=== PATIENT | male | born 1995 | race Caucasian/White ===

== ENCOUNTER 2019-11-19 07:09 | Emergency (ER) | payer OTHER ==
--- NOTE | 2019-11-19 07:17 | ED Physician Documentation ---
PD HPI LOWER EXT INJURY - Stated complaint Stated Complaint: LT FOOT PX - History obtained from History obtained from: Patient - History of Present Illness PD HPI LOW EXT INJURY LOCATION: Left, Foot Type of injury: Blunt / blow (he dropped 25 lb dumbbell on top of foot last evening while working out.) Where injury occurred: Home Timing - details: Abrupt onset, Still present Worsened by: Moving, Palpating Associated symptoms: Swelling, Discolored. No: Weakness, Numbness Contributing factors: No: Anticoagulated Similar symptoms before: Has not had sx before Review of Systems Skin: reports: Abrasion (s). denies: Laceration (s) Musculoskeletal: reports: Extremity swelling Neurologic: denies: Focal weakness, Numbness PD PAST MEDICAL HISTORY - Past Medical History Cardiovascular: None Musculoskeletal: None - Present Medications Home Medications: Ambulatory Orders Medication Instructions Recorded Confirmed No Known Home Medications 11/19/19 11/19/19 - Allergies Allergies/Adverse Reactions: Allergies Allergy/AdvReac Type Severity Reaction Status Date / Time No Known Drug Allergies Allergy Verified 11/19/19 07:23 PD ED PE NORMAL - Vitals Vital signs reviewed: Yes - General General: Alert and oriented X 3, No acute distress, Well developed/nourished - Extremities Extremities: Other (left foot with swelling and tenderness dorsal mid foot. Abrasion on top of foot. Ankle not tender. No plantar tenderness. ) - Neuro Neuro: No motor deficit, No sensory deficit Results - Vitals Vitals: Oxygen O2 Source Room air - Rads (name of study) foot left Radiology: Prelim report reviewed (no fracture), See rad report PD MEDICAL DECISION MAKING - ED course Complexity details: reviewed results (no fracture; it will be tender/ difficult for him to get into usual boots for duty, so given note for regular shoes for 3 days. ), considered differential, d/w patient Departure - Departure Disposition: 01 Home, Self Care Clinical Impression: Foot contusion Qualifiers: Encounter type: initial encounter Laterality: left Qualified Code(s): S90.32XA - Contusion of left foot, initial encounter Condition: Stable Record reviewed to determine appropriate education?: Yes Instructions: ED Contusion Foot Follow-Up: KELLY SAENZ MD [Primary Care Provider] - Comments: No fracture seen on x-ray. I presume will be sore for several days and then improve gradually during that time. Ice elevate and rest the foot for swelling. Band-Aid for the abrasion. I wrote a note for you to not have to wear your boots for 3 days so will be more comfortable. Minimal walking standing etc. during that time as well. Recheck if not improved over several days. Tylenol ibuprofen or naproxen as needed for pains. Forms: Activity restrictions Discharge Date/Time: 11/19/19 09:08
--- NOTE | 2019-11-19 08:16 | XRAY Report ---
Reason: dumbbell dropped onto top of foot Procedure Date: 11/19/2019 Accession Number: [id number] / [id number] Procedure: XR - Foot 3 View LT CPT Code: Final Report FULL RESULT: EXAM: LEFT FOOT RADIOGRAPHY EXAM DATE: 11/19/2019 07:40 AM. CLINICAL HISTORY: Dumbbell dropped onto top of foot. COMPARISON: None. TECHNIQUE: 3 views. FINDINGS: Bones: Normal. No fractures or bone lesions. Joints: Normal. No subluxations. Soft Tissues: Moderate soft tissue swelling noted. No radiopaque foreign bodies are noted. IMPRESSION: 1. No fracture or malalignment. 2. Moderate soft tissue swelling noted. 3. If patient remains symptomatic, recommend follow up in 10-14 days. RADIA
[2019-11-19 08:47] VITALS: BP 140/80
== END 2019-11-19 09:08 | disposition home or self-care (01) ==
LOC: ED 07:09
DX: S90.32XA Contusion of left foot, initial encounter (principal); S90.812A Abrasion, left foot, initial encounter; W20.8XXA Other cause of strike by thrown, projected or falling object, initial encounter; Y93.B3 Activity, free weights; Y92.009 Unspecified place in unspecified non-institutional (private) residence as the place of occurrence of the external cause
CPT/HCPCS: 99283

== ENCOUNTER 2022-11-26 18:33 | Emergency (ER) | payer OTHER ==
[2022-11-26] MEDS ORDERED: IBUPROFEN 600 MG TABLET PO STA (18:52)
--- NOTE | 2022-11-26 19:11 | ED Physician Documentation ---
History of Present Illness - Stated complaint Stated Complaint: R ARM INJ - Chief complaint Chief Complaint: Ext Problem - Additonal information Additional information: 27-year-old male presents emergency department for evaluation of acute right bicep and tricep pain. He was playing softball when he threw a ball forcefully from third base to first. He felt a sharp pain in both his bicep and triceps region and since then has had some pain extending down the forearm as well as some subjective numbness of the right small finger. He is right arm dominant. No history of previous injury. Review of Systems Constitutional: reports: Reviewed and negative Musculoskeletal: reports: Extremity pain PD PAST MEDICAL HISTORY - Past Medical History Past Medical History: No Cardiovascular: None Respiratory: None Neuro: None Endocrine/Autoimmune: None GI: None : None HEENT: None Psych: None Musculoskeletal: None Derm: None - Past Surgical History Past Surgical History: No - Present Medications Home Medications: Ambulatory Orders Medication Instructions Recorded Confirmed No Known Home Medications 11/19/19 11/26/22 - Allergies Allergies/Adverse Reactions: Allergies Allergy/AdvReac Type Severity Reaction Status Date / Time No Known Drug Allergies Allergy Verified 11/26/22 18:42 - Social History Does the pt smoke?: No Smoking Status: Never smoker Does the pt drink ETOH?: Yes Does the pt have substance abuse?: No - Immunizations Immunizations: TDAP >10years/unknown - POLST Patient has POLST: No PD ED PE EXPANDED - General General: Alert, No acute distress - Extremities Extremities: Right arm (Pain with palpation to the distal bicep without obvious swelling. Normal flexion extension at the elbow as well as pronation and supination. full equal bicep. Normal triceps. Normal strength of the hand and wrist.) Results - Vitals Vitals: Vital Signs - 24 hr 11/26/22 18:34 Temperature 36.6 C Heart Rate 77 Respiratory 18 Rate Blood Pressure 119/82 H O2 Saturation 97 Oxygen O2 Source Room air - Rads (name of study) right shoulder Relevant Findings:: EMP independent interpretation of test (No acute fracture or dislocation) PD Medical Decision Making - ED course Complexity details: reviewed results, d/w patient ED course: 27-year-old male presents emergency department for evaluation of acute right bicep and tricep pain sustained when he threw forcefully from third base to first base while playing softball. On exam there is no weakness of either the bicep or tricep muscle in comparison to the left side though he does have pain with extension of the arm. Clinically I suspect he may have a mild tear though he clinically does not have a full tendon rupture. X-ray per my interpretation showed no acute findings. He is placed in a sling advised NSAID medication. We will follow-up with [facility]. The usual emergent return precautions for worsening symptoms were discussed Departure - Departure Disposition: 01 Home, Self Care Clinical Impression: Biceps muscle tear Qualifiers: Encounter type: initial encounter Laterality: right Qualified Code(s): S46.211A - Strain of muscle, fascia and tendon of other parts of biceps, right arm, initial encounter Condition: Serious Record reviewed to determine appropriate education?: Yes Comments: Robert as discussed at bedside I did not see any obvious findings on the x-ray though the story and history of the injury today suggest that you have partially torn your bicep muscle or biceps tendon. Please wear the arm sling. I recommend he take 600 mg of Motrin with food 2-3 times a day. Follow-up with [facility] tomorrow. Most simple tears will begin to heal within about a week but if not markedly better [facility] may elect to refer you to orthopedics/sports medicine and/or consider an MRI.
[2022-11-26 19:42] VITALS: BP 135/89
--- NOTE | 2022-11-26 19:50 | XRAY Report ---
PROCEDURE: Shoulder 3 View RT INDICATIONS: bicep tear TECHNIQUE: 3 views of the shoulder were acquired. COMPARISON: None. FINDINGS: Bones: No fractures or dislocations. No suspicious bony lesions. Visualized ribs appear intact. Soft tissues: No suspicious soft tissue calcifications. IMPRESSION: No visualized acute fracture or dislocation. However, occult injury cannot be excluded. Recommend yao rt interval imaging follow-up in 7-10 days as clinically indicated for additional evaluation. Reviewed by: Nikki Cedeno MD on 11/26/2022 7:49 PM PDT Approved by: Nikki Cedeno MD on 11/26/2022 7:49 PM PDT Station ID: [id number]
== END 2022-11-26 19:35 | disposition home or self-care (01) ==
LOC: ED 18:33
DX: S46.211A Strain of muscle, fascia and tendon of other parts of biceps, right arm, initial encounter (principal); X50.0XXA Overexertion from strenuous movement or load, initial encounter; Y93.64 Activity, baseball
CPT/HCPCS: 73030; 99283; A9270